=== PATIENT | female | born 1955 | race Caucasian/White ===

== ENCOUNTER → 2016-09-30 | Outpatient (CLI) | payer BC | LOC: MAMO 14:59 | DX: Z12.31 Encounter for screening mammogram for malignant neoplasm of breast (principal); H61.21 Impacted cerumen, right ear | CPT/HCPCS: G0202 ==

== ENCOUNTER → 2021-11-23 | Outpatient (CLI) | payer BC | LOC: MAMO 13:30 | DX: Z12.31 Encounter for screening mammogram for malignant neoplasm of breast (principal) | CPT/HCPCS: 77063; 77067 ==